=== PATIENT | female | born 1970 | race Two or more races ===

== ENCOUNTER 2016-09-22 21:29 | Emergency (ER) | payer SELFPAY ==
[~2016-09-22] VITALS: Ht 152.4 cm; Wt 75.7 kg
[2016-09-22 23:00] VITALS: BP 120/57
[2016-09-22 23:01] LABS: BASO % 1 % (0-3); EOS % 1 % (0-3); HEMATOCRIT 23.9 % (36.0-47.0); HEMOGLOBIN 7.3 g/dL (12.0-15.5); LYMPH # 2.3 x10^3/uL (1.0-4.8); LYMPH % 37 % (24-48); MEAN CORPUSCULAR HEMOGLOBIN 27 pg (25-35); MEAN CORPUSCULAR HGB CONC 31 g/dL (31-37); MEAN CORPUSCULAR VOLUME 88 fL (79-100); MONO % 9 % (0-9); NEUT % 52 % (31-73); PLATELET COUNT 354 x10^3/uL (140-400); RED BLOOD COUNT 2.72 x10^6/uL (3.50-5.40); RED CELL DISTRIBUTION WIDTH 16.7 % (11.5-14.5); WHITE BLOOD COUNT 6.3 x10^3/uL (4.0-11.0)
[2016-09-22 23:09] LABS: ANION GAP 11 (6-14); BLOOD UREA NITROGEN 18 mg/dL (7-20); CALCIUM 9.3 mg/dL (8.5-10.1); CARBON DIOXIDE 26 mmol/L (21-32); CHLORIDE 101 mmol/L (98-107); CREATININE 0.7 mg/dL (0.6-1.0); GFR 89.7; GLUCOSE 107 mg/dL (70-99); POTASSIUM 3.8 mmol/L (3.5-5.1); SODIUM 138 mmol/L (136-145)
[2016-09-22 23:14] LABS: ALBUMIN 3.6 g/dL (3.4-5.0); ALK PHOS 69 U/L (46-116); ALT (SGPT) 25 U/L (14-59); AST (SGOT) 37 U/L (15-37); DIRECT BILIRUBIN < 0.1 mg/dL (0.0-0.2); PROTHROMBIN TIME PATIENT 12.9 SEC (11.7-14.0); TOTAL BILIRUBIN 0.1 mg/dL (0.2-1.0)
[2016-09-22] MEDS ORDERED: IPRATRPIUM/ALBUTEROL 0.5/2.5MG 3 ML NEBU. NEB ONE (23:15)
--- NOTE | 2016-09-23 00:03 | PHYS DOC ---
Past Medical History Past Medical History: Hypertension Past Surgical History: Alcohol Use: None Drug Use: None Adult General Chief Complaint Chief Complaint: SHORTNESS OF BREATH HPI HPI 45-year-old femalePresenting to the emergency department today after having 3 wks of vaginal bleeding which has currently stopped. She reports being short of breath with exertion.She denies chest pain and nausea or vomiting.She was recently seen in the clinic where she was found to have a hemoglobin of six.Otherwise she's not had major vaginal bleeding since.Vaginal bleeding was present for approximately 3 weeks prior. duration intermittent. no alleviating factors. ROS neg for cp, abd pain nausea vomiting fevers or chills.All of the review of systems was neg. Review of Systems Review of Systems see above Current Medications Current Medications Current Medications Medications (Trade) Dose Ordered Sig/Kylee Start Time Stop Time Status Last Admin Dose Admin Albuterol/ Ipratropium (Duoneb) 3 ml 1X ONCE 09/22/16 23:15 09/22/16 23:16 DC Allergies Allergies Allergies Coded Allergies Type Severity Reaction Last Updated Verified No Known Drug Allergies 09/22/16 No Physical Exam Physical Exam Constitutional: Well developed, well nourished, no acute distress, non-toxic appearance. [] HENT: Normocephalic, atraumatic, bilateral external ears normal, oropharynx moist, no oral exudates, nose normal. [] Eyes: PERRLA, EOMI, conjunctiva normal, no discharge. Neck: Normal range of motion, no tenderness, supple, no stridor. [] Cardiovascular:Heart rate regular rhythm, no murmur Lungs & Thorax: Bilateral breath sounds clear to auscultation [] Abdomen: Bowel sounds normal, soft, no tenderness, no masses, no pulsatile masses. no guarding present. Skin: Warm, dry, no erythema, no rash. pale skin. Back: No tenderness, no CVA tenderness. Extremities: No tenderness, no cyanosis, no clubbing, ROM intact, no edema. [] Neurologic: Alert and oriented X 3, normal motor function, normal sensory function, no focal deficits noted. Psychologic: Affect normal, judgement normal, mood normal. [] Current Patient Data Vital Signs Vital Signs Date Time Temp Pulse Resp B/P Pulse Ox O2 Delivery O2 Flow Rate FiO2 09/23/16 00:00 66 99 Room Air 09/22/16 23:30 19 09/22/16 23:00 98.2 120/57 98.2 Lab Values Laboratory Tests Test 09/22/16 22:54 White Blood Count 6.3x10^3/uL (4.0-11.0) Red Blood Count 2.72x10^6/uL (3.50-5.40) L Hemoglobin 7.3g/dL (12.0-15.5) L Hematocrit 23.9% (36.0-47.0) L Mean Corpuscular Volume 88fL (79-100) Mean Corpuscular Hemoglobin 27pg (25-35) Mean Corpuscular Hemoglobin Concent 31g/dL (31-37) Red Cell Distribution Width 16.7% (11.5-14.5) H Platelet Count 354x10^3/uL (140-400) Neutrophils (%) (Auto) 52% (31-73) Lymphocytes (%) (Auto) 37% (24-48) Monocytes (%) (Auto) 9% (0-9) Eosinophils (%) (Auto) 1% (0-3) Basophils (%) (Auto) 1% (0-3) Neutrophils # (Auto) 3.3x10^3uL (1.8-7.7) Lymphocytes # (Auto) 2.3x10^3/uL (1.0-4.8) Monocytes # (Auto) 0.6x10^3/uL (0.0-1.1) Eosinophils # (Auto) 0.1x10^3/uL (0.0-0.7) Basophils # (Auto) 0.0x10^3/uL (0.0-0.2) Prothrombin Time 12.9SEC (11.7-14.0) Prothrombin Time INR 1.0 (0.8-1.1) PTT 32SEC (24-38) Sodium Level 138mmol/L (136-145) Potassium Level 3.8mmol/L (3.5-5.1) Chloride Level 101mmol/L (98-107) Carbon Dioxide Level 26mmol/L (21-32) Anion Gap 11 (6-14) Blood Urea Nitrogen 18mg/dL (7-20) Creatinine 0.7mg/dL (0.6-1.0) Estimated GFR (Cockcroft-Gault) 89.7 Glucose Level 107mg/dL (70-99) H Calcium Level 9.3mg/dL (8.5-10.1) Total Bilirubin 0.1mg/dL (0.2-1.0) L Direct Bilirubin < 0.1mg/dL (0.0-0.2) Aspartate Amino Transferase (AST) 37U/L (15-37) Alanine Aminotransferase (ALT) 25U/L (14-59) Alkaline Phosphatase 69U/L (46-116) Troponin I Quantitative < 0.017ng/mL (0.000-0.055) PB-Yjb-V-Type Natriuretic Peptide 90pg/mL (0-124) Total Protein 8.0g/dL (6.4-8.2) Albumin 3.6g/dL (3.4-5.0) Lipase 299U/L (73-393) Laboratory Tests 09/22/16 22:54 Laboratory Tests 09/22/16 22:54 EKG EKG [] Radiology/Procedures Radiology/Procedures [] Course & Med Decision Making Course & Med Decision Making Pertinent Labs and Imaging studies reviewed. (See chart for details) []45 yo F presenting with SOA from anemia. vitals unremarkable. Her previous Hb was 6. today is 7. improved. currently on Fe. otherwise not currently bleeding. Pt d/sepideh and refered to our SOUND RECORDING TECHNICIAN in 2-3 days. Dragon Disclaimer Dragon Disclaimer This electronic medical record was generated, in whole or in part, using a voice recognition dictation system. Departure Departure Impression: Primary Impression: Anemia Additional Impression: Shortness of breath Disposition: 01 HOME, SELF-CARE Condition: STABLE Referrals: NOELLE PARRY MD Patient Instructions: Anemia, FAQs, Anemia, Nonspecific-Brief Additional Instructions: Thank you for allowing us to participate in your care today. Followup with your primary care physician in 3 days if your symptoms do not improve. If you do not have a primary care provider you can ask for a list of our primary care providers. Return to the emergency department you have any new or concerning findings. This should be evaluated by the primary care physician and any necessary consulting services for continued management within a few days after discharge. Return to emergency room if you have any new or concerning symptoms including but not limited to fever, chills, nausea, vomiting, intractable pain, any new rashes, chest pain, shortness of air, uncontrolled bleeding, difficulty breathing, and/or vision loss. Problem Qualifiers AUGUSTO CORRALES MD Sep 23, 2016 00:03
--- NOTE | 2016-09-23 08:03 | RAD ---
Single view chest History:Chest pain today . An AP view of the chest is submitted. Comparison: None. Findings: There is no significant infiltrate, pleural effusion, or pneumothorax. The pericardial cardiac silhouette is within normal limits in size. The trachea is in the midline. There is small likely calcific or sclerotic focus of the proximal left humerus shaft. Impression: 1. There is no evidence of acute cardiopulmonary disease. 2. There is a small focus of sclerosis or calcification of the proximal left humeral shaft, consideration of a small chondroid lesion if this is indeed in the bone.
--- NOTE | 2016-09-23 18:49 | EKG ---
[facility] [address] [place] [address] Test Date: 2016-09-22 Test Time: 23:12:06 Pat Name: MURIEL GRIFFITH Department: Room: Gender: F [employer] Project Manager: TW EMT : 1970 Requested By: AUGUSTO CORRALES Order Number: [id number] Reading MD: Maxine Esparza Measurements Intervals [place] Rate: 73 P: 42 OR: 152 QRS: 34 QRSD: 84 T: 10 QT: 394 QTc: 438 Interpretive Statements SINUS RHYTHM QRS(T) CONTOUR ABNORMALITY CONSIDER INFERIOR MYOCARDIAL DAMAGE ABNORMAL ECG RI6.01 No previous ECG available for comparison Electronically Signed On 09-24-2016 19:02:31 CHIEF COMMERCIAL OFFICER by Maxine Esparza
== END 2016-09-23 00:27 | disposition home or self-care (01) ==
LOC: ER 21:29
DX: N93.9 Abnormal uterine and vaginal bleeding, unspecified (principal); D64.9 Anemia, unspecified; R06.02 Shortness of breath; I10 Essential (primary) hypertension
CPT/HCPCS: 36415; 71010; 80048; 80076; 83690; 83880; 84484; 85027; 85610; 85730; 86850; 86900; 86901; 93005; 99285